=== PATIENT | male | born 1970 | race Hispanic/Latino ===

== ENCOUNTER 2023-06-18 05:56 | Day surgery (SDC) | payer OTHER ==
[~2023-06-18] VITALS: Ht 172.7 cm; Wt 74.8 kg
[2023-06-18] VITALS (12 sets, daily range): BP systolic 96–122; BP diastolic 54–81; PULSE 82–88; RESP 12–18
[2023-06-18] MEDS ORDERED: PROPOFOL 10 MG/ML 20ML VIAL IV ONE (09:23)
[2023-06-18] MEDS ORDERED: SPIR100T PO (09:54)
[2023-06-18] MEDS ORDERED: LACT10SO5 PO (09:54)
[2023-06-18] MEDS ORDERED: FURO80TA3 PO (09:54)
== END 2023-06-18 11:10 | disposition home or self-care (01) ==
LOC: DAH 05:56 → ENDO 05:56
PROVIDERS: ATTEND Internal Medicine Gastroenterology
DX: D50.9 Iron deficiency anemia, unspecified (principal); K74.69 Other cirrhosis of liver; K31.811 Angiodysplasia of stomach and duodenum with bleeding; R18.8 Other ascites; K40.90 Unilateral inguinal hernia, without obstruction or gangrene, not specified as recurrent; K64.4 Residual hemorrhoidal skin tags; Z86.010 Personal history of colon polyps
CPT/HCPCS: 43255; J2704; A4620; A4215 ×2; A4223; A7002; A4222; A4221; A4663; J7030; A4606; J3490

== ENCOUNTER → 2024-09-07 | Outpatient (CLI) | payer OTHER ==
[~2024-09-07] MED LIST: FURO80TA3 PO; GADOTERATE MEGLUMINE 10 MMOL/20 ML VIAL IV ONE; LACT-441 PO; SPIR100T PO
--- NOTE | 2024-09-07 09:13 | HMCIMG ---
MR ABDOMEN W/WO CON HISTORY: Liver cirrhosis COMPARISON: None TECHNIQUE: MRI of the abdomen was performed utilizing multiple pulse sequences in axial, coronal and sagittal planes. Patient was given 17 cc of Clariscan through intravenous route. FINDINGS: No pleural effusion is seen bilaterally. Cirrhotic changes of the liver are noted. Liver measures 11.4 cm. Spleen is enlarged measuring 15 cm. There are extensive abdominal varices and esophageal varices. No gallstone is seen. Small ascites fluid is seen. Adrenal glands and pancreas are unremarkable. Both kidneys are seen without hydronephrosis. IMPRESSION: 1. Cirrhotic liver with enlarged spleen. There are esophageal and abdominal varices. Small ascites. Findings are suggestive of portal hypertension.
== END | disposition home or self-care (01) ==
LOC: RAH 07:51
PROVIDERS: ATTEND Internal Medicine Hepatology
DX: K74.69 Other cirrhosis of liver (principal); I85.10 Secondary esophageal varices without bleeding; R16.1 Splenomegaly, not elsewhere classified; K76.89 Other specified diseases of liver; R18.8 Other ascites
CPT/HCPCS: 74183; A9575